=== PATIENT | female | born 1995 ===

== ENCOUNTER 2016-10-27 11:16 | Inpatient (IN) | payer MEDICAID, OTHER ==
[2016-10-27 11:54] VITALS: BMI 29.0
[2016-10-27] MEDS ORDERED: Penicillin G 5 Million Unit Vial IVPB ONE ×2 (12:00→12:40)
[2016-10-27] MEDS ORDERED: Lactated Ringer's 1,000 ML IV SCH (12:00)
--- NOTE | 2016-10-27 12:04 | OBADHP ---
Datetime: 10/27/2016 11:58 Admit Comment, IP Provider: chief complaint-contractions HPI 21 y/o at 39.2 wga by third trimester ultrasound, here with c/o ctx since 6 am.pateint re ports losing ehr musocu plug as well.denies nausea, vomiting, headache, chest pain, shortness of dipesh th, numbness or tingling in hands and feet course -limited care.dates established by third triemster ultrasound; [employer] anatomy scan or genetic testing results available PMH denies PSH denies OBGYN HX Social hx denies tobacco,alcohol or illicit drug use Exam see exam section A/P 21 y/o at 39.2 wga in labor,gbs unknown.Limkted care at [facility] -admit -see orders -start antibiotics for gbs prophyalxis Pelvic Type - PN: Adequate Extremities - PN: Normal Abdomen - PN: Normal Back - PN: Normal Lungs - PN: Normal Heart - PN: Normal Neurologic - PN: Normal General - PN: Normal Weight - Estimated: 3200 Presentation-Admit: Vertex Contraction Comments Provider: every 2-3min Gestation - Est Wks by US: 39.2 IP Hx Assessment: The History has been Reviewed and is Current Vital Signs Provider: Reviewed; Within Normal Limits IP Chief Complaint: Uterine contractions FHR Category Provider Fetus A: Category I Dilatation, Provider: 3 Effacement, Provider: 80 Station, Provider: -2 Genitourinary Exam: Normal DTRs - PN: Normal IP Adm Impression: Term, intrauterine ; Active labor IP Admit Plan: Admit to unit
[2016-10-27 13:14] LABS: BASO % 0.3 % (0.0-2.0); EOS # 0.1 K/uL (0.0-0.7); EOS % 0.5 % (0.0-4.0); HEMATOCRIT 32.4 % (34.0-47.0); LYMPH # 1.8 K/uL (1.0-4.3); LYMPH % 14.6 % (20.0-40.0); MEAN CELL VOLUME 87.5 fL (81.0-99.0); MEAN CORPUSCULAR HEMOGLOBIN 29.6 pg (27.0-31.0); MEAN CORPUSCULAR HGB CONC 33.8 g/dL (33.0-37.0); MEAN PLATELET VOLUME 10.1 fL (7.2-11.7); MONO # 0.6 K/uL (0.0-0.8); MONO % 4.5 % (0.0-10.0); NRBC % 0.1 % (0.0-2.0); RED CELL DISTRIBUTION WIDTH 13.4 % (11.5-14.5); WHITE BLOOD COUNT 12.5 K/uL (4.8-10.8)
[2016-10-27 13:21] LABS: RBC URINE 1 /hpf (0-3); URINE BILIRUBIN NEGATIVE (NEGATIVE); URINE BLOOD 1+ (NEGATIVE); URINE COLOR Straw (YELLOW); URINE GLUCOSE (UA) NORMAL (Normal); URINE KETONE NEGATIVE (NEGATIVE); URINE LEUKOCYTE ESTERASE NEG Leu/uL (Negative); URINE PROTEIN NEGATIVE (NEGATIVE); URINE UROBILINOGEN NORMAL mg/dL (0.2-1.0); WBC URINE 1 /hpf (0-5)
[2016-10-27] MEDS ORDERED: Oxytocin 30 UNIT 500 ML IV ONE (14:09)
--- NOTE | 2016-10-27 14:13 | OBPN ---
Datetime: 10/27/2016 14:07 IP Progress Impression: Reassuring heart rate IP Informed Consent Obtain: Risks, Benefits and Alternatives Discussed IP Procedures: Sterile Vag Exam IP Progress Plan: Augmentation Contraction Comments Provider: irregular Gestation - Est Wks by US: 39.2 IP Progress Note Comment: S-patient uncomfortable with contractions. O-Vs afebrile FHT cat1 [place] irregular ctx sve 380/-1 A/P Patient in labor at 39.2 wga in labor.GBS unknown.On pen G -start pitocin for augmentation -discussed pain management options-iv meds versus epidural.risks and benefits of each discussed.Phuc kaur wants to proceed Vital Signs Provider: Reviewed; Within Normal Limits FHR Category Provider Fetus A: Category I Dilatation, Provider: 3 Effacement, Provider: 80 Station, Provider: -1 Datetime: 10/27/2016 11:58 Weight - Estimated: 3200 Presentation-Admit: Vertex
[2016-10-27] MEDS ORDERED: Oxytocin 30 UNIT 500 ML IV PRN (14:43)
[2016-10-27] MEDS ORDERED: Bupivacaine HCl 0.25% PF (10 ml) Inj ONE (15:11)
[2016-10-27] MEDS ORDERED: Bupivacaine 0.125%/FentaNYL 200 ML EPI ONE (16:47)
--- NOTE | 2016-10-27 18:49 | OBPN ---
Datetime: 10/27/2016 18:45 IP Progress Impression: Reassuring heart rate IP Informed Consent Obtain: Vaginal Delivery; Risks, Benefits and Alternatives Discussed IP Procedures: Sterile Vag Exam IP Progress Plan: Continue present management Contraction Comments Provider: every 2 min Gestation - Est Wks by US: 39.2 Presentation-Admit: Vertex IP Progress Note Comment: S-patient comfortable with epidural FHT cat1 [place] ctx q 2-3min sve 7/100/-1 pit at 8 A/P Patient at 39.2 wga in labor.On pit for augmentation.On pen G for gbs prophyalxis -continue to monitor closely -pitocin as per protocol -anticipate normal vaginal delivery Vital Signs Provider: Reviewed FHR Category Provider Fetus A: Category I Dilatation, Provider: 7 Effacement, Provider: 100 Station, Provider: -1
--- NOTE | 2016-10-27 20:26 | OBDS ---
DELIVERY PERSONNEL Nurse Barge Master Certified: N/A Delivery Doctor: Melanie Lopez MD Scrub Nurse: N/A Press Operator: Alison Kearney RN Anesthesiologist: DR HILL Joint Setter: VINEET Resident: NTad MATERNAL INFORMATION Delivery Anesthesia: Epidural Medications in Delivery: PITOCIN 20 UNITS IN 1L IV Estimated Blood Loss (ml): 150 Placenta Cultured: No Maternal Complications: None Provider Comments: of a female infant from FLAKO position.Compound presentation involving the left hand.Body and shoulderd delivered without difficulty.Cord clamped and cut.Cord blood collected.Place nta spontaneously delivered.superficial vaginal and periurtheral laceration noted(first degree) which was repaired with 3-0 chromic.Fundus firm.patient and infant stable LABOR SUMMARY EDC: 11/01/2016 00:00 No. Babies in Womb: 1 LABOR INFORMATION Onset of Labor: 10/27/2016 04:00 Complete Dilatation: 10/27/2016 19:47 MEMBRANES Membranes Rupture Method: Spontaneous Rupture of Membranes: 10/27/2016 15:35 (Annotations: Dr. John cortez) Length of Rupture (hrs): 4.52 Amniotic Fluid Color: Clear Amniotic Fluid Amount: Moderate Amniotic Fluid Odor: Normal STAGES OF LABOR Stage 1 hrs: 15 Stage 1 min: 47 Stage 2 hrs: 0 Stage 2 min: 19 Stage 3 hrs: 0 Stage 3 min: 4 Total Time in Labor hrs: 16 Total Time in Labor min: 10 VAGINAL DELIVERY Episiotomy: None Laceration Extension: First Degree Laceration Type: Vaginal Other Laceration: periurethral Laceration Repair: Yes Laceration Repair Note: superficial vaginal and periurtheral laceration noted(first degree) which wa s repaired with single stitch of 3-0 chromic. Sponge Count Correct: Yes; Vaginal Sweep Performed Sharps Count Correct: Yes Count Comment: correct BABY A INFORMATION Delivery Date/Time: 10/27/2016 20:06 Method of Delivery: Vaginal Born in Route : No Forceps: N/A Vacuum Extraction: N/A Shoulder Dystocia : No SHOULDER DYSTOCIA BABY A Infant Delivery Date/Time: 10/27/2016 20:06 PRESENTATION/POSITION BABY A Presentation: Cephalic Cephalic Presentation: Vertex Breech Presentation: N/A PLACENTA INFORMATION BABY A Placenta Delivery Time : 10/27/2016 20:10 Placenta Method of Delivery: Spontaneous Placenta Status: Delivered SCORES BABY A Heart Rate 1 min: >100 bpm Resp Effort 1 min: Good Cry Reflex Irritability 1 min: Cough or Sneeze or Pulls Away Muscle Tone 1 min: Active Motion Color 1 min: Body [place], Extremities Blue Resuscitation Effort 1 min: N/A SCORE 1 MIN: 9 Heart Rate 5 min: >100 bpm Resp Effort 5 min: Good Cry Reflex Irritability 5 min: Cough or Sneeze or Pulls Away Muscle Tone 5 min: Active Motion Color 5 min: Body [place], Extremities Blue Resuscitation Effort 5 min: N/A SCORE 5 MIN: 9 INFANT INFORMATION BABY A Gestational Age at Delivery: 39.2 Gestational Status: Term Infant Outcome : Liveborn Infant Condition : Stable Sex: Female IDENTIFICATION/MEDS BABY A ID Band Number: [id number] ID Band Location: Left Leg; Left Arm Sensor Applied: Yes Sensor Number: [id number] Sensor Location : Cord Clamp WEIGHT/LENGTH BABY A Birthweight (gms): 3100 Weight (lb): 6 Weight (oz): 13 Length Inches: 19.75 Length cms: 50.2 CORD INFORMATION BABY A No. Cord Vessels: #3 Nuchal Cord : N/A Infant Suction: None ASSESSMENT BABY A Infant Complications: None Physical Findings at Delivery: Within Normal Limits Respirations: Appears Normal [place] Diving/ALS Called : No Infant Care By: jess lemus Transferred To: [facility]
[2016-10-27] MEDS ORDERED: Oxycodone/Acetaminophen 5/325 mg Tab PO PRN (20:28)
[2016-10-27] MEDS ORDERED: Benzocaine/Menthol 20%-0.5% Topical Spray (60 ml) TOP PRN (20:28)
--- NOTE | 2016-10-28 07:24 | OBPPN ---
Datetime: 10/28/2016 07:21 PP Pain Prov: Within normal limits PP Nausea Prov: Denies PP Flatus Prov: Yes PP Abdomen/Uterus Prov: Normal PP Lochia Prov: Normal PP Extremities Prov: Normal PP Comments Phys Exam Prov: fudus below umblicus ext no edema,no calf ten PP Impression Prov: Normal progression PP Plan Prov: Continue present management PP Progress Note Prov: pt was seen at bed side, pain under control, no n/v, tolerating deit, voiding ,min lochi ppd#1 s/p cont pp care cbc reg deit cont pain management Vital Signs Provider PP: Reviewed; Within Normal Limits
[2016-10-28 08:28] LABS: BASO % 0.2 % (0.0-2.0); EOS % 0.2 % (0.0-4.0); HEMATOCRIT 32.4 % (34.0-47.0); LYMPH % 13.7 % (20.0-40.0); MEAN CELL VOLUME 88.5 fL (81.0-99.0); MEAN CORPUSCULAR HEMOGLOBIN 29.1 pg (27.0-31.0); MEAN CORPUSCULAR HGB CONC 32.9 g/dL (33.0-37.0); MEAN PLATELET VOLUME 10.6 fL (7.2-11.7); MONO # 0.9 K/uL (0.0-0.8); MONO % 6.4 % (0.0-10.0); RED CELL DISTRIBUTION WIDTH 13.6 % (11.5-14.5); WHITE BLOOD COUNT 14.9 K/uL (4.8-10.8)
[2016-10-28] MEDS: Multiple Vitamins Tab PO SCH (10:25)
[2016-10-29 07:57] VITALS: BP 107/71; PULSE 78; RESP 18; TEMP 98.1; O2SAT 99
--- NOTE | 2016-10-29 08:34 | OBPPN ---
Datetime: 10/29/2016 08:31 PP Pain Prov: Within normal limits PP Nausea Prov: Denies PP Flatus Prov: Yes PP BM Prov: No PP Heart Prov: Normal PP Lungs Prov: Normal PP Abdomen/Uterus Prov: Normal PP Lochia Prov: Normal PP CVA Tenderness Prov: Normal PP Extremities Prov: Normal PP C/S Incision Prov: Not Applicable PP Progress Prov: Normal PP Impression Prov: Normal progression PP Plan Prov: Discharge PP Progress Note Prov: S-patient denies any compalnts.denies nausea, vomiting, headache, chest pain, shortness of breath, numbness or tingling in hands and feet, vision changes, epigastric pain O-VSS Afebrile Fundus firm and below umbilicus extremities no calf tendernss A/P Patient s/p vaginal delivery ppd 2. -discharge today -follow up in office in 6 weeks Vital Signs Provider PP: Reviewed; Within Normal Limits
--- NOTE | 2016-10-29 08:35 | OBDCSUM ---
Datetime: 10/29/2016 08:33 Discharged to, Provider: Home Follow up at, Provider: obgyn clinic Disch Instr Activity: Normal activity Disch Instr Diet: Regular Discharge Instructions, Provider: Routine instructions given Discharge Diagnosis, Provider: Term Delivered Discharge Time: 10/29/2016 08:33 Follow up in weeks, Provider: 6 weeks Disch Activity Restrictions: No exercising; No lifting; No driving; Minimize stair-climbing; No sexu al activity; Nothing in vagina - [place], tampons, douche Discharge Comment, Provider: continue vitamins go to er if you have fever, severe pain, heavy bleeding, pain or redness in calf muscles or any ot her problems Discharge Diagnosis Prov Other: s/p vaginal delivery
[2016-10-29] MEDS: Multiple Vitamins Tab PO SCH (09:27)
== END 2016-10-29 12:20 | disposition home or self-care (01) | DRG 373 ==
LOC: C.EROB 11:16 → C.4D 11:56 → C.4M 22:32
PROVIDERS: ADMIT Student in an Organized Health Care Education/Training Program; ATTEND Student in an Organized Health Care Education/Training Program
PROC: 10E0XZZ Delivery of Products of Conception, External Approach (ICD-10-PCS; principal; 2016-10-27)
PROC: 0UQMXZZ Repair Vulva, External Approach (ICD-10-PCS; 2016-10-27)
PROC: 0HQ9XZZ Repair Perineum Skin, External Approach (ICD-10-PCS; 2016-10-27)
DX: O32.6XX0 Maternal care for compound presentation, not applicable or unspecified (principal); O70.0 First degree perineal laceration during delivery; Z37.0 Single live birth; Z3A.39 39 weeks gestation of pregnancy; O71.82 Other specified trauma to perineum and vulva

== ENCOUNTER 2017-12-20 20:20 | Emergency (ER) | payer SELFPAY ==
[2017-12-20 20:21] VITALS: BMI 29.0
[2017-12-20] MEDS ORDERED: Sodium Chloride 0.9% 1,000 ML IV ONE (20:37)
--- NOTE | 2017-12-20 20:37 | C.PDOC ---
History Of Present Illness 22 year old female presents to the ED c/o fever, chills, back pain, flank pain that started 3 days ago. Patient states she also has decreased PO intake. Patient denies dysuria, heamturia, nausea, vomit, diarrhea, recent travel, sick contacts. Time Seen by Provider: 12/20/17 20:36 Chief Complaint (Nursing): Abdominal Pain History Per: Patient History/Exam Limitations: no limitations Onset/Duration Of Symptoms: Days Current Symptoms Are (Timing): Still Present Context: Other Severity: Moderate Pain Scale Rating Of: 4 Location Of Pain/Discomfort: Diffuse Radiation Of Pain To:: Back, Flank Quality Of Discomfort: "Pain" Associated Symptoms: Fever, Chills. denies: Urinary Symptoms Exacerbating Factors: None Alleviating Factors: None Last Bowel Movement: Today Recent travel outside of the [place]: No Additional History Per: Patient Abnormal Vaginal Bleeding: No Past Medical History Reviewed: Historical Data, Nursing Documentation, Vital Signs Vital Signs: Last Vital Signs Temp 99 F 12/20/17 22:28 Pulse 105 H 12/20/17 22:28 Resp 14 12/20/17 22:28 BP 112/70 12/20/17 22:28 Pulse Ox 98 12/20/17 22:28 - Medical History PMH: No Chronic Diseases Surgical History: No Surg Hx - [facility] Procedures DELIVERY OF PRODUCTS OF CONCEPTION, EXTERNAL APPROACH (10/27/16) REPAIR PERINEUM SKIN, EXTERNAL APPROACH (10/27/16) REPAIR VULVA, EXTERNAL APPROACH (10/27/16) Family History: States: Unknown Family Hx - Social History Hx Alcohol Use: No Hx Substance Use: No - Immunization History Hx Tetanus Toxoid Vaccination: No Hx Influenza Vaccination: No Hx Pneumococcal Vaccination: No Review Of Systems Constitutional: Positive for: Fever, Chills Cardiovascular: Negative for: Chest Pain Respiratory: Negative for: Cough, Shortness of Breath Gastrointestinal: Positive for: Abdominal Pain. Negative for: Nausea, Vomiting Genitourinary: Negative for: Dysuria, Hematuria Musculoskeletal: Positive for: Back Pain Skin: Negative for: Rash Neurological: Negative for: Weakness, Numbness Psych: Negative for: Anxiety Physical Exam - Physical Exam Appears: Non-toxic, No Acute Distress Skin: Warm, Dry Head: Normacephalic Eye(s): bilateral: Normal Inspection Oral Mucosa: Moist Neck: Supple Chest: Symmetrical Cardiovascular: Rhythm Regular Respiratory: No Rales, No Rhonchi, No Wheezing Gastrointestinal/Abdominal: Soft, Tenderness (left flank), No Guarding, No Rebound Back: Other (left flank tenderness) Extremity: Normal ROM, No Tenderness, Capillary Refill (< 2 seconds), No Swelling Extremity: Bilateral: Atraumatic, Normal Color And Temperature Pulses: Left Dorsalis Pedis: Normal, Right Dorsalis Pedis: Normal Neurological/Psych: Oriented x3, Normal Speech Gait: Steady ED Course And Treatment - Laboratory Results Result Diagrams: 12/20/17 20:58 12/20/17 20:58 O2 Sat by Pulse Oximetry: 98 (ON RA) Pulse Ox Interpretation: Normal Progress Note: Plan: - VBG. - Labs. - IV fluids. - Zofran 4 mg IVP. - Blood culture. - UA Medical Decision Making Medical Decision Making: Upon provider reevaluation patient is feeling better, is medically stable, and requires no further treatment in the ED at this time. Patient will be discharged home with Rx for levaquin. Counseling was provided and all questions were answered regarding diagnosis and need for follow up with the referred clinic. There is agreement to discharge plan. Return if symptoms persist or worsen. Disposition Counseled Patient/Family Regarding: Studies Performed, Diagnosis, Need For Followup, Rx Given - Disposition Referrals: [facility] [Outside] [facility] [Outside] Disposition: HOME/ ROUTINE Disposition Time: 20:37 Condition: FAIR Additional Instructions: Please return if symptoms recur Prescriptions: Levofloxacin [Levaquin] 500 mg PO DAILY #7 tablet Instructions: Urinary Tract Infection, Adult (DC) Forms: [facility] (Lao) Print Language: MALAY - Clinical Impression Clinical Impression: UTI (urinary tract infection) - Scribe Statement The provider has reviewed the documentation as recorded by the Scribe Salazar Hoffman All medical record entries made by the Scribe were at my direction and personally dictated by me. I have reviewed the chart and agree that the record accurately reflects my personal performance of the history, physical exam, medical decision making, and the department course for this patient. I have also personally directed, reviewed, and agree with the discharge instructions and disposition.
[2017-12-20 20:38] VITALS: O2SAT 98
[2017-12-20 21:01] LABS: BASO # 0.1 K/uL (0.0-0.2); BASO % 0.6 % (0.0-2.0); EOS # 0.1 K/uL (0.0-0.7); EOS % 0.7 % (0.0-4.0); HEMOGLOBIN 14.2 g/dL (11.0-16.0); LYMPH % 6.6 % (20.0-40.0); MEAN CELL VOLUME 85.6 fL (81.0-99.0); MEAN CORPUSCULAR HEMOGLOBIN 30.2 pg (27.0-31.0); MEAN CORPUSCULAR HGB CONC 35.2 g/dL (33.0-37.0); MEAN PLATELET VOLUME 9.3 fL (7.2-11.7); MONO # 0.7 K/uL (0.0-0.8); MONO % 4.8 % (0.0-10.0); NEUT # 13.3 K/uL (1.8-7.0); NEUT % 87.3 % (50.0-75.0); NRBC % 0.1 % (0.0-2.0); PLATELET COUNT 277 K/uL (130-400); RBC 4.72 Mil/uL (3.80-5.20); RED CELL DISTRIBUTION WIDTH 13.1 % (11.5-14.5); WHITE BLOOD COUNT 15.2 K/uL (4.8-10.8)
[2017-12-20 21:04] LABS: VENOUS BLOOD GAS BASE EXCESS 0.7 mmol/L (0.0-2.0); VENOUS BLOOD GAS PCO2 35 mmHg (40-60); VENOUS BLOOD GAS PO2 36 mm/Hg (30-55); VENOUS BLOOD PH 7.45 (7.32-7.43)
[2017-12-20 21:04] LABS: HCG,QUALITATIVE URINE NEGATIVE (NEGATIVE)
[2017-12-20] MEDS ORDERED: Sodium Chloride 0.9% 1,000 ML ONE (21:04)
[2017-12-20 21:09] LABS: SQUAMOUS EPITHIAL 8 /hpf (0-5); URINE BACTERIA RARE (<OCC); URINE BILIRUBIN 1+ (NEGATIVE); URINE BLOOD NEGATIVE (NEGATIVE); URINE CLARITY Hazy (Clear); URINE COLOR Yellow (YELLOW); URINE GLUCOSE (UA) NORMAL (Normal); URINE LEUKOCYTE ESTERASE TRACE Leu/uL (Negative); URINE PROTEIN 1+ mg/dL (NEGATIVE)
[2017-12-20 21:10] LABS: INR 1.4; PROTHROMBIN TIME 15.4 SECONDS (9.7-12.2)
[2017-12-20 21:13] LABS: ALB/GLOB RATIO 1.3 (1.0-2.1)
[2017-12-20 21:15] VITALS: RESP 14
[2017-12-20] MEDS ORDERED: Piperacillin/Tazobact 3.375 gm 100 ML IVPB STA (21:15)
[2017-12-20 21:16] LABS: ALBUMIN 4.5 g/dL (3.5-5.0); ALT/SGPT 28 U/L (9-52); AST/SGOT 35 U/L (14-36); BLOOD UREA NITROGEN 12 mg/dL (7-17); CALCIUM 9.4 mg/dl (8.6-10.4); GFR AFRICAN-AMERICAN > 60; GFR NON-AFRICAN AMERICAN > 60; LIPASE 52 U/L (23-300)
[2017-12-20] MEDS ORDERED: Piperacillin/Tazobact 3.375 gm 100 ML IVPB ONE (21:28)
[2017-12-20] MEDS ORDERED: Iodixanol 320 MG/ML 100 ML BOTTLE IV ONE (21:39)
[2017-12-20 21:41] LABS: BANDS 10 % (0-2); EOSINOPHIL 1 % (0-4); LYMPHOCYTE 7 % (20-40); MONOCYTE 7 % (0-10); NEUTROPHIL 75 % (50-75); PLATELET ESTIMATE NORMAL (NORMAL); TOTAL CELLS COUNTED 100
[2017-12-20 21:42] LABS: LARGE PLATELETS PRESENT; MICROCYTOSIS SLIGHT
[2017-12-20 22:29] VITALS: BP 112/70; PULSE 105; TEMP 99
--- NOTE | 2017-12-20 22:42 | CT ---
EXAM: CT Abdomen and Pelvis With Intravenous Contrast EXAM DATE/TIME: 12/20/2017 9:15 PM CLINICAL HISTORY: 22 years old, female; Pain; Abdominal pain; Flank; Lower; Additional info: Flank pain, n/v TECHNIQUE: Axial computed tomography images of the abdomen and pelvis with intravenous contrast. All CT scans at this facility use one or more dose reduction techniques, viz.: automated exposure control; ma/kV adjustment per patient size (including targeted exams where dose is matched to indication; i.e. head); or iterative reconstruction technique. Coronal and sagittal reformatted images were created and reviewed. CONTRAST: 100 mL of VISIPAQUE administered intravenously. COMPARISON: No relevant prior studies available. FINDINGS: The liver, spleen, pancreas, kidneys, gallbladder are normal. The bowel appears normal. A normal appendix is identified coronal images 44 through 50. There are numerous bilateral ovarian follicles. There is a low attenuation area within the uterine fundus probable fibroid. Non-emergent followup ultrasound could be performed for confirmation. IMPRESSION: No acute findings. Probable uterine fibroid.
== END 2017-12-20 23:17 | disposition home or self-care (01) ==
LOC: C.ER 20:20
DX: N39.0 Urinary tract infection, site not specified (principal)
CPT/HCPCS: 74177; 80053; 81001; 82803; 83690; 84703; 85025; 85610; 85730; 87040; 96365; 96375; 99285; J2405; J2543; J7030; Q9967

== ENCOUNTER 2018-03-06 19:50 | Emergency (ER) | payer SELFPAY ==
[2018-03-06 19:50] VITALS: BMI 29.0
[2018-03-06] MEDS ORDERED: Sodium Chloride 0.9% 1,000 ML IV ONE (20:23)
[2018-03-06] MEDS ORDERED: Iohexol 240 (50 ml) PO ONE (20:24)
--- NOTE | 2018-03-06 20:25 | C.PDOC ---
Chief Complaint (Nursing): Abdominal Pain Past Medical History Vital Signs: Last Vital Signs Temp 98.4 F 03/06/18 20:08 Pulse 80 03/06/18 20:08 Resp 14 03/06/18 20:08 BP 120/76 03/06/18 20:08 Pulse Ox 98 03/06/18 20:08 - [facility] Procedures DELIVERY OF PRODUCTS OF CONCEPTION, EXTERNAL APPROACH (10/27/16) REPAIR PERINEUM SKIN, EXTERNAL APPROACH (10/27/16) REPAIR VULVA, EXTERNAL APPROACH (10/27/16) Family History: States: Unknown Family Hx - Social History Hx Alcohol Use: No Hx Substance Use: No - Immunization History Hx Tetanus Toxoid Vaccination: No Hx Influenza Vaccination: No Hx Pneumococcal Vaccination: No ED Course And Treatment O2 Sat by Pulse Oximetry: 98 Disposition - Disposition
--- NOTE | 2018-03-06 20:27 | C.PDOC ---
"History Of Present Illness 22 year old female presents to the ED complaining of abdominal pain that began today. She describes pain as severe. She denies any dysuria, hematuria, diarrhea , nausea, vomiting, back pain, or changes in bowel. Chief Complaint (Nursing): Abdominal Pain History Per: Patient History/Exam Limitations: no limitations Onset/Duration Of Symptoms: Hrs Current Symptoms Are (Timing): Still Present Severity: Severe Location Of Pain/Discomfort: Diffuse Associated Symptoms: denies: Nausea, Vomiting, Urinary Symptoms Past Medical History Vital Signs: Last Vital Signs Temp 98.5 F 03/07/18 01:45 Pulse 70 03/07/18 01:45 Resp 14 03/07/18 01:45 BP 118/73 03/07/18 01:45 Pulse Ox 98 03/07/18 02:21 - [email or web address] Procedures DELIVERY OF PRODUCTS OF CONCEPTION, EXTERNAL APPROACH (10/27/16) REPAIR PERINEUM SKIN, EXTERNAL APPROACH (10/27/16) REPAIR VULVA, EXTERNAL APPROACH (10/27/16) Family History: States: Unknown Family Hx - Social History Hx Alcohol Use: No Hx Substance Use: No - Immunization History Hx Tetanus Toxoid Vaccination: No Hx Influenza Vaccination: No Hx Pneumococcal Vaccination: No Review Of Systems Except As Marked, All Systems Reviewed And Found Negative. Gastrointestinal: Positive for: Abdominal Pain. Negative for: Nausea, Vomiting , Diarrhea Genitourinary: Negative for: Dysuria, Hematuria Musculoskeletal: Negative for: Back Pain Physical Exam - Physical Exam Appears: Non-toxic, No Acute Distress Skin: Warm, Dry Head: Atraumatic, Normacephalic Eye(s): bilateral: Normal Inspection Nose: Normal Oral Mucosa: Moist Neck: Supple Chest: Symmetrical Cardiovascular: Rhythm Regular Respiratory: Normal Breath Sounds, No Rales, No Rhonchi, No Wheezing Gastrointestinal/Abdominal: Tenderness (Bilateral tenderness to the abdomen, more to the right than left ), No Guarding, No Rebound Extremity: Normal ROM Neurological/Psych: Oriented x3, Normal Speech Gait: Steady ED Course And Treatment - Laboratory Results Result Diagrams: 03/06/18 20:46 03/06/18 20:46 O2 Sat by Pulse Oximetry: 98 (RA) Pulse Ox Interpretation: Normal - CT Scan/US US abdomen Other Rad Studies (CT/US): Read By Radiologist, Radiology Report Reviewed CT/US Interpretation: EXAM: US Abdomen Complete. CLINICAL HISTORY: 22 years old, female; Pain; Abdominal pain; Generalized; Additional info: Abd pain, mostly lower. TECHNIQUE: Real-time ultrasound of the abdomen (complete) with image documentation. COMPARISON: No relevant prior studies available. FINDINGS: Liver: Enlarged, 18.1 cm. Fatty infiltration. No definite mass. No intrahepatic ductal dilatation. Gallbladder: Contracted. No gallstones. Up to 0.36 cm wall thickness. No pericholecystic fluid. No. sonographic Briones's sign. Common bile duct: No dilatation. No stones. Pancreas: Obscured by overlying bowel gas. Kidneys: Normal echogenicity. No hydronephrosis. Spleen: No splenomegaly. Aorta: Unremarkable. No aneurysm. Inferior vena cava: Unremarkable. Free fluid: No significant free fluid. IMPRESSION: 1. Hepatic steatosis. 2. Borderline gallbladder wall thickening. Clinical correlation is needed. Thank you for allowing us to participate in the care of your patient. Dictated and Authenticated by: Tab Wiley MD. 03/07/2018 2:14 AM Eastern Time ([place] & [place]) Transvaginal US Other Rad Studies (CT/US): Read By Radiologist, Radiology Report Reviewed CT/US Interpretation: EXAM: US Pelvis Complete, Transabdominal. US Pelvis, Transvaginal. US Duplex Arterial/Venous of the Pelvis, Complete. CLINICAL HISTORY: 22 years old, female; Pain; Pelvic pain; Additional info: Lower abd pain. TECHNIQUE: Real-time transabdominal and transvaginal pelvic ultrasound ( complete) with image documentation. Transvaginal imaging was used for better evaluation of the endometrium and adnexa. Real-time. duplex ultrasound scan of the arterial and venous flow of the pelvis with color Doppler flow and. spectral waveform analysis. COMPARISON: No relevant prior studies available. FINDINGS: Uterus/cervix: Retroverted uterus. No myometrial mass. Endometrium: 0.8 cm in thickness. Right ovary: No mass. Small follicles. Normal flow. Left ovary: No mass. Small follicles. Normal flow. Free fluid: No significant free fluid. Trace free fluid within pelvis. IMPRESSION: 1. No acute findings. 2. Non-acute findings are described above. RAH BRITO | Preliminary Radiology Report. CONFIDENTIALITY STATEMENT. This report is intended only for the use of the referring physician, and only in accordance with law, If you received this in error, call [phone]. Page 2 of 2. Please note: In setting of positive test, differential diagnosis may include early IUP, missed. , ectopic . Thank you for allowing us to participate in the care of your patient. Dictated and Authenticated by: Tab Wiley MD. 03/07/2018 2:18 AM Eastern Time ([place] & [place]) Medical Decision Making Medical Decision Making: Orders: - CT Abd/Pel - Blood work - Lab work - Toradol 30mg IVP - IV fluids - UA Disposition Counseled Patient/Family Regarding: Diagnosis - Disposition Referrals: [facility] [Outside] Disposition: HOME/ ROUTINE Disposition Time: 02:23 Condition: STABLE Prescriptions: Acetaminophen [Tylenol 325mg tab] 650 mg PO Q4 #20 tab Nitrofurantoin Macrocrystals [Macrobid] 1 cap PO BID #14 cap Multivit/Folic Acid/I [ Plus] 1 tab PO DAILY #30 tab Instructions: Round Ligament Pain, Urinary Tract Infection, Adult (DC), Symptoms Forms: [email or web address] [facility] (Congolese), Gen Discharge Inst Sami Print Language: [place] ISLAND[place] - POA Present On Arrival: None - Clinical Impression Clinical Impression: Abdominal pain, , UTI (urinary tract infection) during - Scribe Statement The provider has reviewed the documentation as recorded by the Scribe Marjorie Nunez All medical record entries made by the Scribe were at my direction and personally dictated by me. I have reviewed the chart and agree that the record accurately reflects my personal performance of the history, physical exam, medical decision making, and the department course for this patient. I have also personally directed, reviewed, and agree with the discharge instructions and disposition."
[2018-03-06] MEDS ORDERED: Iohexol 240 (50 ml) ONE (20:39)
[2018-03-06 20:47] LABS: SQUAMOUS EPITHIAL 2 /hpf (0-5); URINE BILIRUBIN NEGATIVE (NEGATIVE); URINE BLOOD 2+ (NEGATIVE); URINE CLARITY Clear (Clear); URINE COLOR Yellow (YELLOW); URINE GLUCOSE (UA) NORMAL (Normal); URINE LEUKOCYTE ESTERASE NEG Leu/uL (Negative); URINE PROTEIN NEGATIVE (NEGATIVE); URINE UROBILINOGEN NORMAL mg/dL (0.2-1.0)
[2018-03-06 20:49] LABS: HCG,QUALITATIVE URINE POSITIVE (NEGATIVE)
[2018-03-06 20:50] LABS: BASO % 0.5 % (0.0-2.0); EOS # 0.7 K/uL (0.0-0.7); EOS % 8.4 % (0.0-4.0); LYMPH # 2.5 K/uL (1.0-4.3); LYMPH % 29.6 % (20.0-40.0); MEAN CELL VOLUME 86.8 fL (81.0-99.0); MEAN CORPUSCULAR HEMOGLOBIN 30.1 pg (27.0-31.0); MEAN CORPUSCULAR HGB CONC 34.7 g/dL (33.0-37.0); MEAN PLATELET VOLUME 9.1 fL (7.2-11.7); MONO # 0.5 K/uL (0.0-0.8); MONO % 5.9 % (0.0-10.0); NEUT # 4.6 K/uL (1.8-7.0); NEUT % 55.6 % (50.0-75.0); NRBC % 0.1 % (0.0-2.0); RBC 4.31 Mil/uL (3.80-5.20); RED CELL DISTRIBUTION WIDTH 13.5 % (11.5-14.5); WHITE BLOOD COUNT 8.3 K/uL (4.8-10.8)
[2018-03-06 21:03] LABS: ALB/GLOB RATIO 1.5 (1.0-2.1); ALBUMIN 4.2 g/dL (3.5-5.0); ALT/SGPT 32 U/L (9-52); AST/SGOT 19 U/L (14-36); BLOOD UREA NITROGEN 10 mg/dL (7-17); CALCIUM 9.4 mg/dl (8.6-10.4); GFR AFRICAN-AMERICAN > 60; GFR NON-AFRICAN AMERICAN > 60; LIPASE 77 U/L (23-300)
[2018-03-06 23:37] VITALS: TEMP 98.5
[2018-03-07 01:46] VITALS: BP 118/73; PULSE 70
[2018-03-07 02:17] VITALS: O2SAT 98
[2018-03-07 02:59] VITALS: RESP 18
--- NOTE | 2018-03-07 11:57 | US ---
Abdominal ultrasound History: Abdominal pain. Comparison: CT scan dated 12/20/2017 Technique: Real-time sonography was performed through the abdomen. Findings: Liver: 18.1 centimeters in length. Increased echogenicity of the hepatic parenchymal cortex suggestive for fatty infiltration versus hepatic parenchymal disease. Clinical correlation. Gallbladder: Contracted. No calculi or sludge. Gallbladder wall is mildly prominent measuring up to 3.6 mm. Associated mild gallbladder wall edema. Negative sonographic Briones's sign. Common bile duct measures 3.7 millimeters, within normal limits. Limited visualization of the pancreas. Spleen measures 9.8 centimeters in length, within normal limits. Visualized aorta and IVC are preserved. Right kidney: 10.9 x 3.6 x 4.6 centimeters. No calculi or hydronephrosis. Left Kidney: 11.2 x 5.0 x 4.4 centimeters. No calculi or hydronephrosis. Impression: 1. Prominent liver measuring 18.1 centimeters in length. Increased echogenicity of the hepatic parenchymal cortex suggestive for fatty infiltration versus hepatic parenchymal disease. Clinical correlation. 2. Gallbladder wall is mildly prominent measuring 3.6 millimeters in width. Associated gallbladder wall edema. No gross calculi or sludge. Negative sonographic Briones's sign. Clinical correlation. 3. Limited visualization of the pancreas. These findings were preliminarily reported at 2:14 a.m. on 03/07/[address] Tab Wiley from [facility].
--- NOTE | 2018-03-07 12:02 | US ---
Date of service: 03/07/2018 HISTORY: LOWER ABD PAIN COMPARISON: None available. TECHNIQUE: Transabdominal and endovaginal ultrasound examination of the pelvis was performed. FINDINGS: UTERUS: Measures 8.1 x 3.6 x 5.1 cm. Normal in size and appearance. No fibroid or other mass lesion seen. ENDOMETRIUM: Measures 8 mm in diameter. Unremarkable. CERVIX: No cervical abnormality identified. RIGHT OVARY: Measures 3.7 x 2.2 x 3.2 cm. No solid mass. Normal flow. LEFT OVARY: Measures 3.2 x 3.7 x 1.8 cm. No solid mass. Normal flow. FREE FLUID: No significant free fluid noted. OTHER FINDINGS: None. IMPRESSION: No evidence of intrauterine . No evidence of acute pathology in the pelvis. Preliminary report was submitted by [facility].
== END 2018-03-07 02:49 | disposition home or self-care (01) ==
LOC: C.ER 19:50
DX: O23.40 Unspecified infection of urinary tract in pregnancy, unspecified trimester (principal); O26.899 Other specified pregnancy related conditions, unspecified trimester; R10.9 Unspecified abdominal pain
CPT/HCPCS: 76700; 76830; 76856; 80053; 81001; 83690; 84702; 84703; 85025; 86850; 86900; 87086; 96374; 99284; J1885; J7030; Q9966

== ENCOUNTER 2018-03-11 08:49 | Emergency (ER) | payer OTHER ==
[2018-03-11 08:50] VITALS: BMI 29.0
[2018-03-11 09:41] LABS: BASO # 0.1 K/uL (0.0-0.2); BASO % 0.7 % (0.0-2.0); EOS # 0.7 K/uL (0.0-0.7); EOS % 7.7 % (0.0-4.0); HEMOGLOBIN 13.4 g/dL (11.0-16.0); LYMPH # 2.7 K/uL (1.0-4.3); LYMPH % 29.1 % (20.0-40.0); MEAN CELL VOLUME 86.8 fL (81.0-99.0); MEAN CORPUSCULAR HEMOGLOBIN 30.7 pg (27.0-31.0); MEAN CORPUSCULAR HGB CONC 35.4 g/dL (33.0-37.0); MEAN PLATELET VOLUME 9.5 fL (7.2-11.7); MONO # 0.7 K/uL (0.0-0.8); MONO % 7.8 % (0.0-10.0); NEUT # 5.1 K/uL (1.8-7.0); NEUT % 54.7 % (50.0-75.0); NRBC % 0.1 % (0.0-2.0); RBC 4.35 Mil/uL (3.80-5.20); RED CELL DISTRIBUTION WIDTH 13.3 % (11.5-14.5); WHITE BLOOD COUNT 9.2 K/uL (4.8-10.8)
[2018-03-11 09:47] LABS: SQUAMOUS EPITHIAL 1 /hpf (0-5); URINE BILIRUBIN NEGATIVE (NEGATIVE); URINE BLOOD 2+ (NEGATIVE); URINE CLARITY Hazy (Clear); URINE COLOR Yellow (YELLOW); URINE GLUCOSE (UA) NORMAL (Normal); URINE LEUKOCYTE ESTERASE NEG Leu/uL (Negative); URINE PROTEIN NEGATIVE (NEGATIVE); URINE UROBILINOGEN NORMAL mg/dL (0.2-1.0)
[2018-03-11 10:10] LABS: ALB/GLOB RATIO 1.5 (1.0-2.1); ALBUMIN 4.2 g/dL (3.5-5.0); ALT/SGPT 20 U/L (9-52); AST/SGOT 23 U/L (14-36); BLOOD UREA NITROGEN 8 mg/dL (7-17); GFR AFRICAN-AMERICAN > 60; GFR NON-AFRICAN AMERICAN > 60
--- NOTE | 2018-03-11 11:08 | C.PDOC ---
History Of Present Illness 22 year old female, , presents to ED for evaluation of vaginal bleeding that started last night. Notes she changed 1 pad so far. She also reports lower abdominal pain described as cramping which has resolved. (+)mild dysuria. Otherwise, denies current pain, fever, chills, chest pain, shortness of breath, vomiting, or diarrhea. Patient was seen in ED 5 days ago, was found to be with no IUP on ultrasound. Time Seen by Provider: 03/11/18 09:16 Chief Complaint (Nursing): Female Genitourinary History Per: Patient History/Exam Limitations: no limitations Past Medical History Reviewed: Historical Data, Nursing Documentation, Vital Signs Vital Signs: Last Vital Signs Temp 98.2 F 03/11/18 12:27 Pulse 74 03/11/18 12:27 Resp 18 03/11/18 12:27 BP 112/74 03/11/18 12:27 Pulse Ox 98 03/11/18 14:14 - [facility] Procedures DELIVERY OF PRODUCTS OF CONCEPTION, EXTERNAL APPROACH (10/27/16) REPAIR PERINEUM SKIN, EXTERNAL APPROACH (10/27/16) REPAIR VULVA, EXTERNAL APPROACH (10/27/16) Family History: States: Unknown Family Hx - Social History Hx Alcohol Use: No Hx Substance Use: No - Immunization History Hx Tetanus Toxoid Vaccination: Yes Hx Influenza Vaccination: Yes Hx Pneumococcal Vaccination: Yes Review Of Systems Except As Marked, All Systems Reviewed And Found Negative. Constitutional: Negative for: Fever, Chills Cardiovascular: Negative for: Chest Pain Respiratory: Negative for: Shortness of Breath Gastrointestinal: Negative for: Vomiting, Abdominal Pain, Diarrhea Genitourinary: Positive for: Dysuria, Vaginal Bleeding Physical Exam - Physical Exam Additional Physical Exam Comments: Constitutional: No acute distress. Head: Normocephalic. Atraumatic. Eyes: PERRL. ENT: Moist mucous membranes. Neck: Supple. Cardiovascular: Regular rate. Radial pulse 2+ bilaterally. Chest: No tenderness. Respiratory: Clear to auscultation bilaterally. GI: Soft. Right pelvic tenderness with guarding. Nondistended. Back: No CVA tenderness. Musculoskeletal: No tenderness or swelling of extremities. Skin: No rash. Neurologic: Alert, no focal deficit ED Course And Treatment - Laboratory Results Result Diagrams: 03/11/18 09:36 03/11/18 09:36 O2 Sat by Pulse Oximetry: 98 (RA) Pulse Ox Interpretation: Normal Medical Decision Making Medical Decision Making: Plan: Blood work Urinalysis Transvag US Transvag US IMPRESSION: No evidence of intrauterine gestation. . Small to medium amount of free fluid within the cul de sac and surrounding the right ovary with a near by complex appearing cyst or heterogeneous mass. Rule out ectopic . Clinical correlation with follow-up serial serum beta HCG and serial pelvic ultrasound recommended. Discussed case with OBGYN security operations analyst Dr. Razo who recommends following Beta once per week until 0. Instructed patient to f/u with OBGYN or clinic for beta but if can not, return here in 1 week for repeat beta. Disposition - Disposition Referrals: [facility] [Outside] Disposition: HOME/ ROUTINE Disposition Time: 12:14 Condition: STABLE Instructions: Ovarian Cysts, Miscarriage (DC) Forms: [facility] (Luxembourgish) - Clinical Impression Clinical Impression: Spontaneous , Ovarian cyst - Scribe Statement The provider has reviewed the documentation as recorded by the Scribe KP All medical record entries made by the Scribe were at my direction and personally dictated by me. I have reviewed the chart and agree that the record accurately reflects my personal performance of the history, physical exam, medical decision making, and the department course for this patient. I have also personally directed, reviewed, and agree with the discharge instructions and disposition.
--- NOTE | 2018-03-11 12:14 | US ---
Date of service: 03/11/2018 HISTORY: vag bleed in , assess cervix COMPARISON: . Comparison made with ultrasound 03/07/2018 TECHNIQUE: Transvaginal sonographic evaluation of the pelvis performed FINDINGS: UTERUS: Uterus is anteverted measuring approximate 8.0 x 3.3 x 4.3 cm. Normal in size and appearance. No fibroid or other mass lesion seen. ENDOMETRIUM: Endometrium measures approximate 8 mm in diameter. No evidence of intrauterine gestation. CERVIX: No cervical abnormality identified. Cervix measures approximately 3.1 cm RIGHT OVARY: Right ovary measures 4.1 x 2.0 x 3.4 cm. There is a complex cyst or heterogeneous mass adjacent to the right ovary that measures approximately 1.6 x 1.7 x 1.4 cm. . Rule out ectopic . . Normal flow. LEFT OVARY: Left ovary measures approximate 3.2 x 2.6 x 2.0 cm. No solid mass. . Tiny para ovarian cyst measured 1.3 x 0.9 x 1.0 cm Normal flow. FREE FLUID: Small to medium amount of free fluid is present in the cul de sac and about the right ovary. OTHER FINDINGS: None. IMPRESSION: No evidence of intrauterine gestation. . Small to medium amount of free fluid within the cul de sac and surrounding the right ovary with a near by complex appearing cyst or heterogeneous mass. Rule out ectopic . Clinical correlation with follow-up serial serum beta HCG and serial pelvic ultrasound recommended.
[2018-03-11 14:23] VITALS: BP 116/76; PULSE 75; RESP 16; TEMP 98.9
[2018-03-11 14:24] VITALS: O2SAT 98
== END 2018-03-11 14:23 | disposition home or self-care (01) ==
LOC: C.ER 08:49
DX: O03.9 Complete or unspecified spontaneous abortion without complication (principal); O34.80 Maternal care for other abnormalities of pelvic organs, unspecified trimester; N83.202 Unspecified ovarian cyst, left side

== ENCOUNTER 2018-03-18 15:27 | Emergency (ER) | payer OTHER ==
[2018-03-18 15:45] VITALS: BMI 28.5
[2018-03-18 15:47] VITALS: BP 130/85; PULSE 81; RESP 18; TEMP 98.2; O2SAT 98
--- NOTE | 2018-03-18 16:06 | C.PDOC ---
History Of Present Illness 22 year old female presents to the emergency department for a repeat beta. Patient reports that she was seen here on 03-11-18, and was advised per her OB- SENIOR ANALYST PROGRAMMER to return in one week for a repeat beta. Time Seen by Provider: 03/18/18 15:49 Chief Complaint (Nursing): Medical Clearance History Per: Patient History/Exam Limitations: no limitations Reports Recently: Seen In ED (03-11-18) Past Medical History Reviewed: Historical Data, Nursing Documentation, Vital Signs Vital Signs: Last Vital Signs Temp 98.2 F 03/18/18 15:45 Pulse 81 03/18/18 15:45 Resp 18 03/18/18 15:45 BP 130/85 03/18/18 15:45 Pulse Ox 98 03/18/18 16:08 - Medical History PMH: No Chronic Diseases Surgical History: No Surg Hx - [facility] Procedures DELIVERY OF PRODUCTS OF CONCEPTION, EXTERNAL APPROACH (10/27/16) REPAIR PERINEUM SKIN, EXTERNAL APPROACH (10/27/16) REPAIR VULVA, EXTERNAL APPROACH (10/27/16) Family History: States: No Known Family Hx - Social History Hx Alcohol Use: No Hx Substance Use: No - Immunization History Hx Tetanus Toxoid Vaccination: Yes Hx Influenza Vaccination: Yes Hx Pneumococcal Vaccination: Yes Review Of Systems Except As Marked, All Systems Reviewed And Found Negative. Constitutional: Negative for: Fever, Chills Physical Exam - Physical Exam Appears: Non-toxic, No Acute Distress Skin: Warm, Dry Head: Atraumatic, Normacephalic Eye(s): bilateral: Normal Inspection Neck: Normal, Supple Chest: Symmetrical Cardiovascular: Rhythm Regular Respiratory: Normal Breath Sounds Gastrointestinal/Abdominal: Normal Exam Extremity: Normal ROM Neurological/Psych: Oriented x3 ED Course And Treatment O2 Sat by Pulse Oximetry: 98 (RA) Pulse Ox Interpretation: Normal Progress Note: Plan: Beta-HCG Disposition Counseled Patient/Family Regarding: Diagnosis, Need For Followup - Disposition Referrals: [facility] [Outside] [facility] [Outside] [facility] [Provider Group] Disposition: HOME/ ROUTINE Disposition Time: 17:04 Condition: GOOD Additional Instructions: REGRESE EN 1 SEMANA PARA REPETIR LA PRUEBA DE EMBARAZO EN LA MERARY. Instructions: Miscarriage (DC) Forms: [facility] ([place]an), Gen Discharge Inst Pashto - Clinical Impression Clinical Impression: Encounter for test, result positive - Scribe Statement The provider has reviewed the documentation as recorded by the Scribe (Rayo Hazel) Provider Attestation: All medical record entries made by the Scribe were at my direction and personally dictated by me. I have reviewed the chart and agree that the record accurately reflects my personal performance of the history, physical exam, medical decision making, and the department course for this patient. I have also personally directed, reviewed, and agree with the discharge instructions and disposition.
== END 2018-03-18 17:09 | disposition home or self-care (01) ==
LOC: C.ER 15:27
DX: Z32.01 Encounter for pregnancy test, result positive (principal)